=== PATIENT | female | born 1965 | race Caucasian/White ===

== ENCOUNTER 2017-08-15 23:24 | Emergency (ER) | payer OTHER ==
[~2017-08-15] VITALS: Ht 165.1 cm; Wt 83.9 kg
[~2017-08-15 23:24] MED LIST: AMLODIPINE BESYL5 MG PO; CALCIUM 600 MG1 EAC3 PO
[2017-08-15] MEDS ORDERED: PROPECIA1 MG PO (23:43)
[2017-08-15] MEDS ORDERED: FLEXERIL PO (23:44)
[2017-08-15] MEDS ORDERED: IBUPROFEN 800800 M1 PO (23:44)
[2017-08-16] MEDS ORDERED: FLEXERIL PO (00:14)
[2017-08-16] MEDS ORDERED: HYDROCODONE-AP1 EAC6 PO (00:14)
== END 2017-08-16 00:30 | disposition home or self-care (01) ==
LOC: ER 23:24
DX: M54.5 Low back pain (principal); I10 Essential (primary) hypertension